=== PATIENT | male | born 1965 | race Caucasian/White ===

== ENCOUNTER 2023-08-26 09:40 | Outpatient (RCR) | payer OTHER ==
[~2023-08-26 09:40] MED LIST: ASPIRIN CHEW81 MG PO; LIPITOR20 MG PO; METHOCARBAMOL750 MG PO
== END 2023-09-09 ==
LOC: OT 09:40
PROVIDERS: ATTEND Plastic Surgery
DX: M24.542 Contracture, left hand (principal); M25.542 Pain in joints of left hand; R53.1 Weakness

== ENCOUNTER 2025-01-30 11:43 | Observation (INO) | payer OTHER ==
[~2025-01-30] VITALS: Ht 193 cm; Wt 88.9 kg
[2025-01-30 12:12] VITALS: TEMP 98.1
[2025-01-30 12:58] LABS: BASOPHILS % 0.5 % (0.0-1.0); EOSINOPHILS # (AUTO) 0.2 (0.0-0.4); EOSINOPHILS % 2.4 % (0.0-6.0); HEMATOCRIT 40.9 % (38.2-49.6); HEMOGLOBIN 13.1 g/dL (14.0-18.0); LYMPHOCYTES # (AUTO) 1.7 (1.0-3.2); LYMPHOCYTES % 24.9 % (18.0-39.1); MEAN CORPUSCULAR HEMOGLOBIN 22.7 pg (28-32); MEAN CORPUSCULAR VOLUME 70.8 fL (81-99); MONOCYTES # (AUTO) 0.5 (0.2-0.8); MONOCYTES % 7.7 % (4.4-11.3); NEUTROPHILS # (AUTO) 4.3 (2.1-6.9); NEUTROPHILS % 64.2 % (38.7-80.0); PLATELET COUNT 171 x10e3/uL (140-360); RED BLOOD COUNT 5.78 x10e6/uL (4.3-5.7); RED CELL DISTRIBUTION WIDTH 14.6 % (11.7-14.4); WHITE BLOOD COUNT 6.62 x10e3/uL (4.8-10.8)
[2025-01-30 13:15] LABS: INR 0.97; PROTHROMBIN TIME 13.5 seconds (11.9-14.5)
[2025-01-30 13:16] LABS: PARTIAL THROMBOPLASTIN TIME 29.5 seconds (23.8-35.5)
[2025-01-30 13:17] LABS: ALANINE AMINOTRANSFERASE 15 IU/L (0-55); ALBUMIN 3.9 g/dL (3.5-5.0); ALBUMIN/GLOBULIN RATIO 1.1 (0.8-2.0); ALKALINE PHOSPHATASE 66 IU/L (40-150); ANION GAP 12.8 mmol/L (8-16); BILIRUBIN,TOTAL 0.7 mg/dL (0.2-1.2); BLOOD UREA NITROGEN 11 mg/dL (7-26); BUN/CREATININE RATIO 13 (6-25); CALCIUM 8.7 mg/dL (8.4-10.2); CARBON DIOXIDE 23 mmol/L (22-29); CHLORIDE 103 mmol/L (98-107); CREATININE, SERUM 0.86 mg/dL (0.72-1.25); EST GLOMERULAR FILTRATION RATE 99 ML/MIN (>=60); GLUCOSE 89 mg/dL (74-118); MAGNESIUM 2.2 MG/DL (1.3-2.1); POTASSIUM 3.8 mmol/L (3.5-5.1); SODIUM 135 mmol/L (136-145); TOTAL PROTEIN 7.3 g/dL (6.5-8.1)
[2025-01-30 13:39] LABS: TROPONIN I < 0.001 ng/mL (0-0.300)
[2025-01-30 14:13] VITALS: PULSE 48; RESP 15
[2025-01-30] MEDS ORDERED: ONDANSETRON HCL INJ 2MG/ML 2ML 2 MG/ML VIAL IV PRN (14:45)
[2025-01-30] MEDS ORDERED: ALBUTEROL/IPRATROPIUM 3 ML NEB NEB PRN (14:45)
[2025-01-30] MEDS ORDERED: HYDRALAZINE HCL 20 MG/ML VIAL IV PRN (17:15)
[2025-01-30] MEDS ORDERED: ONDANSETRON HCL 4 MG ORAL DISINTEGRATING TAB PO PRN (17:15)
[2025-01-30 17:37] VITALS: BP 146/86; PULSE 56; RESP 18; TEMP 97.8; O2SAT 98
[2025-01-30 18:06] LABS: CREATINE KINASE 73 IU/L (30-200)
[2025-01-30 18:12] LABS: TROPONIN I < 0.001 ng/mL (0-0.300)
[2025-01-30] MEDS: TELMISARTAN 40 MG TAB PO SCH (18:42)
[2025-01-30 20:00] VITALS: BP 144/87; PULSE 60; RESP 20; TEMP 97.6; O2SAT 96
[2025-01-30 21:00] VITALS: BP 144/87; PULSE 60; RESP 20; TEMP 97.6; O2SAT 96
[2025-01-30] MEDS: ATORVASTATIN 40 MG TAB PO SCH (21:58)
[2025-01-31] VITALS (8 sets, daily range): BP systolic 120–134; BP diastolic 77–90; PULSE 54–65; RESP 18–20; TEMP 97.5–98.7; O2SAT 97–100
[2025-01-31 06:29] LABS: BASOPHILS # (AUTO) 0.1 (0.0-0.1); BASOPHILS % 0.8 % (0.0-1.0); EOSINOPHILS # (AUTO) 0.2 (0.0-0.4); EOSINOPHILS % 3.9 % (0.0-6.0); HEMATOCRIT 39.8 % (38.2-49.6); HEMOGLOBIN 12.7 g/dL (14.0-18.0); LYMPHOCYTES # (AUTO) 1.6 (1.0-3.2); LYMPHOCYTES % 25.4 % (18.0-39.1); MEAN CORPUSCULAR HEMOGLOBIN 22.9 pg (28-32); MEAN CORPUSCULAR HGB CONC 31.9 g/dL (31-35); MEAN CORPUSCULAR VOLUME 71.7 fL (81-99); MONOCYTES # (AUTO) 0.6 (0.2-0.8); MONOCYTES % 9.5 % (4.4-11.3); NEUTROPHILS # (AUTO) 3.7 (2.1-6.9); NEUTROPHILS % 60.2 % (38.7-80.0); PLATELET COUNT 167 x10e3/uL (140-360); RED BLOOD COUNT 5.55 x10e6/uL (4.3-5.7); RED CELL DISTRIBUTION WIDTH 14.6 % (11.7-14.4)
[2025-01-31 07:05] LABS: ALBUMIN 3.5 g/dL (3.5-5.0); ALBUMIN/GLOBULIN RATIO 1.1 (0.8-2.0); ANION GAP 12.1 mmol/L (8-16); BILIRUBIN,TOTAL 0.4 mg/dL (0.2-1.2); CALCIUM 8.6 mg/dL (8.4-10.2); CHOL/HDL RATIO 4.7 (3.9-4.7); CREATININE, SERUM 0.91 mg/dL (0.72-1.25); POTASSIUM 4.1 mmol/L (3.5-5.1); TOTAL PROTEIN 6.8 g/dL (6.5-8.1)
[2025-01-31 07:30] LABS: TROPONIN I 0.003 ng/mL (0-0.300)
[2025-01-31] MEDS ORDERED: ALBUTEROL SULF 0.083% NEB SOLN 3 ML NEB NEB STA (08:12)
[2025-01-31] MEDS: ASPIRIN 81 MG ENTERIC COATED PO SCH (08:55)
[2025-01-31] MEDS: CLOPIDOGREL BISULFATE 75 MG TAB PO SCH (08:55)
[2025-01-31] MEDS: TELMISARTAN 40 MG TAB PO SCH (08:56)
[2025-01-31] MEDS ORDERED: REGADENOSON 0.4 MG/5 ML SYR IV ONE (15:38)
[2025-01-31] MEDS: ACETAMINOPHEN 325 MG TAB PO PRN (17:36)
[2025-01-31] MEDS: MELATONIN 5 MG TABLET PO PRN (20:47)
[2025-02-01] VITALS: BP 104/69; PULSE 60; RESP 20; TEMP 98; O2SAT 99
[2025-02-01 04:00] VITALS: BP 121/77; PULSE 98; RESP 20; TEMP 97.6; O2SAT 97
[2025-02-01] MEDS ORDERED: PLAVIX75 MG PO (08:36)
[2025-02-01] MEDS ORDERED: ATORVASTATIN CA40 MG PO (08:36)
[2025-02-01] MEDS ORDERED: MICARDIS40 MG PO (08:36)
[2025-02-01] MEDS: FAMOTIDINE 20 MG TAB PO PRN (08:39)
[2025-02-01 09:00] VITALS: BP 123/88; PULSE 59; RESP 20; TEMP 97.5; O2SAT 100
[2025-02-01 09:30] VITALS: BP 123/88; PULSE 59; RESP 20; TEMP 97.5; O2SAT 100
== END 2025-02-01 10:30 | disposition home or self-care (01) ==
LOC: ER 12:10 → ERHOLD 14:47 → MED/SURG3 17:05
PROVIDERS: ADMIT Family Medicine Adult Medicine; ATTEND Family Medicine Adult Medicine
DX: R07.89 Other chest pain (principal); I25.10 Atherosclerotic heart disease of native coronary artery without angina pectoris; I16.0 Hypertensive urgency; I45.10 Unspecified right bundle-branch block; E78.5 Hyperlipidemia, unspecified; R25.2 Cramp and spasm; I73.9 Peripheral vascular disease, unspecified; F43.10 Post-traumatic stress disorder, unspecified; F12.10 Cannabis abuse, uncomplicated; Z72.0 Tobacco use; B19.20 Unspecified viral hepatitis C without hepatic coma; J43.9 Emphysema, unspecified; M25.561 Pain in right knee; I11.0 Hypertensive heart disease with heart failure; I50.32 Chronic diastolic (congestive) heart failure
CPT/HCPCS: 36415 ×2; 71045; 73562; 78452; 80053 ×2; 80061; 82550 ×2; 82607; 82728; 82746; 83735; 83880; 84443; 84466; 84484 ×2; 85025 ×2; 85045; 85610; 85730; 93005 ×2; 93017; 93306; 93880; 93925; 99284; A9502; G0378 ×3; J2785

== ENCOUNTER 2025-03-28 20:10 | Emergency (ER) | payer OTHER ==
[~2025-03-28] VITALS: Ht 193 cm; Wt 88.9 kg
[2025-03-28 20:10] VITALS: PULSE 62; RESP 18; TEMP 98.5; O2SAT 98
[~2025-03-28 20:10] MED LIST changes: +ATORVASTATIN CA40 MG PO; +MICARDIS40 MG PO; +PLAVIX75 MG PO
[2025-03-28] MEDS: IBUPROFEN 600 MG TAB PO STA (21:25)
[2025-03-28] MEDS ORDERED: HYDROCODON-ACE1 EA12 PO (23:12)
[2025-03-29 00:31] VITALS: BP 138/67; PULSE 63; RESP 18; TEMP 98.6
== END 2025-03-28 23:26 | disposition home or self-care (01) ==
LOC: ER 20:45
DX: S52.591A Other fractures of lower end of right radius, initial encounter for closed fracture (principal); S52.611A Displaced fracture of right ulna styloid process, initial encounter for closed fracture; W01.0XXA Fall on same level from slipping, tripping and stumbling without subsequent striking against object, initial encounter; Y93.01 Activity, walking, marching and hiking; Y92.89 Other specified places as the place of occurrence of the external cause; J44.9 Chronic obstructive pulmonary disease, unspecified; E78.5 Hyperlipidemia, unspecified; F17.210 Nicotine dependence, cigarettes, uncomplicated
CPT/HCPCS: 99284

== ENCOUNTER → 2025-04-06 | Outpatient (REF) | payer OTHER ==
[~2025-04-06] MED LIST changes: +HYDROCODON-ACE1 EA12 PO
[2025-04-06 15:24] LABS: BASOPHILS % 0.6 % (0.0-1.0); EOSINOPHILS # (AUTO) 0.2 (0.0-0.4); EOSINOPHILS % 3.1 % (0.0-6.0); HEMATOCRIT 41.7 % (38.2-49.6); HEMOGLOBIN 13.1 g/dL (14.0-18.0); LYMPHOCYTES # (AUTO) 1.8 (1.0-3.2); LYMPHOCYTES % 26.2 % (18.0-39.1); MEAN CORPUSCULAR HGB CONC 31.4 g/dL (31-35); MEAN CORPUSCULAR VOLUME 73.2 fL (81-99); MONOCYTES # (AUTO) 0.6 (0.2-0.8); MONOCYTES % 8.8 % (4.4-11.3); NEUTROPHILS # (AUTO) 4.3 (2.1-6.9); NEUTROPHILS % 61.2 % (38.7-80.0); PLATELET COUNT 193 x10e3/uL (140-360); RED CELL DISTRIBUTION WIDTH 16.6 % (11.7-14.4); WHITE BLOOD COUNT 7.01 x10e3/uL (4.8-10.8)
[2025-04-06 15:59] LABS: INR 0.95; PROTHROMBIN TIME 13.6 seconds (11.9-14.5)
[2025-04-06 16:00] LABS: PARTIAL THROMBOPLASTIN TIME 31.1 seconds (23.8-35.5)
[2025-04-06 16:06] LABS: ANION GAP 13.9 mmol/L (8-16); CREATININE, SERUM 0.93 mg/dL (0.72-1.25); POTASSIUM 3.9 mmol/L (3.5-5.1)
== END ==
LOC: RAD 08:00 → EDSTATUS 04-11 07:00
PROVIDERS: ATTEND Behavior Technician
DX: Z01.812 Encounter for preprocedural laboratory examination (principal); S52.551A Other extraarticular fracture of lower end of right radius, initial encounter for closed fracture; Z01.818 Encounter for other preprocedural examination; K75.9 Inflammatory liver disease, unspecified; Z72.0 Tobacco use
CPT/HCPCS: 36415; 71046; 80048; 85025; 85610; 85730